=== PATIENT | male | born 1970 | race Caucasian/White ===

== ENCOUNTER 2022-07-08 05:47 | Emergency (ER) | payer OTHER ==
[~2022-07-08] VITALS: Ht 182.9 cm; Wt 108.4 kg
[2022-07-08 06:07] VITALS: BP 136/98
[2022-07-08 08:11] LABS: BASO # 0.02 K/mm3 (0.02-0.10); EOS # 0.07 K/mm3 (0.04-0.40); EOS % 1.3 % (0.0-4.0); HEMATOCRIT 47.7 % (42.0-52.0); HEMOGLOBIN 15.8 g/dL (13.5-18.0); LYMPH# 1.49 K/mm3 (1.50-4.00); MEAN CELL VOLUME 88 fl (78-100); MEAN CORPUSCULAR HEMOGLOBIN 29 pg (27-31); MEAN CORPUSCULAR HGB CONC 33 g/dL (33-37); MEAN PLATELET VOLUME 8.9 fl (7.4-10.4); MONO # 0.46 K/mm3 (0.20-0.80); PLATELET COUNT 227 K/mm3 (130-400); RED BLOOD COUNT 5.45 M/mm3 (4.20-5.60); RED CELL DISTRIBUTION WIDTH 12.9 % (11.5-14.5); WHITE BLOOD COUNT 5.6 K/mm3 (4.8-10.8)
[2022-07-08 08:17] LABS: STREP SCREEN NEGATIVE (NEGATIVE)
== END 2022-07-08 09:22 | disposition home or self-care (01) ==
LOC: ED 05:47
PROVIDERS: Family Medicine
DX: R05.9 Cough, unspecified (principal)